=== PATIENT | male | born 1965 | race Caucasian/White ===

== ENCOUNTER 2019-10-23 16:58 | Emergency (ER) | payer BC ==
[~2019-10-23] VITALS: Ht 182.9 cm; Wt 102.5 kg
--- NOTE | 2019-10-23 17:26 | NUR ---
pt to room 15 from lobby
--- NOTE | 2019-10-23 18:13 | NUR ---
PROVIDER AT BEDSIDE
--- NOTE | 2019-10-23 18:36 | NUR ---
URINE SAMPLE SENT TO LAB. US AT BEDSIDE. CALL LIGHT WITHIN REACH.
[2019-10-23 18:40] LABS: BASOPHILS # (AUTO) 0.04 x10^3/uL (0-0.1); BASOPHILS % (AUTO) 1 % (0-1); EOSINOPHILS # (AUTO) 0.13 x10^3/uL (0-0.4); EOSINOPHILS % (AUTO) 2 % (1-7); LYMPHOCYTES # (AUTO) 1.48 x10^3/uL (1-3.4); LYMPHOCYTES % (AUTO) 20 % (22-44); MD NO; MEAN CORPUSCULAR HEMOGLOBIN 30.9 pg (27.5-34.5); MEAN CORPUSCULAR HGB CONC 33.5 g/dL (33.2-36.2); MEAN CORPUSCULAR VOLUME 92.2 fL (81-97); MEAN PLATELET VOLUME 6.7 fL (7.4-10.4); MONOCYTES # (AUTO) 0.59 x10^3/uL (0.2-0.8); MONOCYTES % (AUTO) 8 % (2-9); NEUTROPHILS # (AUTO) 5.15 x10^3/uL (1.8-6.8); NEUTROPHILS % (AUTO) 70 % (42-75); PLATELET COUNT 496 x10^3/uL (130-400); RED BLOOD COUNT 4.48 x10^6/uL (4.38-5.82); RED CELL DISTRIBUTION WIDTH 13.3 % (9.4-14.8)
[2019-10-23 18:49] LABS: MICROSCOPIC NOT IND
--- NOTE | 2019-10-23 18:51 | NUR ---
REPORT FROM HARLAN DESIR. US AT BEDSIDE.
[2019-10-23 18:52] LABS: CULTURE INDICATED? NO
[2019-10-23 18:53] LABS: ALBUMIN 3.1 g/dL (3.4-5.0); ANION GAP 5 mmol/L (5-15); CALCIUM 8.9 mg/dL (8.5-10.1); CHLORIDE 106 mmol/L (98-107)
[2019-10-23 18:57] LABS: ALANINE AMINOTRANSFERASE 278 U/L (12-78); ALKALINE PHOSPHATASE 315 U/L (45-117); BILIRUBIN,TOTAL 1.3 mg/dL (0.2-1.0); CREATININE 1.12 mg/dL (0.7-1.3); TOTAL PROTEIN 7.4 g/dL (6.4-8.2)
--- NOTE | 2019-10-23 19:19 | NUR ---
PT RESTING ON CUONG, VITALS UPDATED, NADN CALL LIGHT IN REACH
--- NOTE | 2019-10-23 19:20 | NUR ---
ALL RESULTS BACK AT THIS TIME, AWAITING FURTHER ORDERS
[2019-10-23 20:08] VITALS: BP 114/67
--- NOTE | 2019-10-23 21:06 | NUR ---
Patient/Caregiver given discharge instructions and they have confirmed that they understand the instructions. Patient ambulatory with steady gait.
== END 2019-10-23 21:07 | disposition home or self-care (01) ==
LOC: ED 20:34
DX: K85.10 Biliary acute pancreatitis without necrosis or infection (principal); K80.21 Calculus of gallbladder without cholecystitis with obstruction; R11.10 Vomiting, unspecified
CPT/HCPCS: 36415; 76700; 80053; 81003; 83690; 85025; 99284

== ENCOUNTER → 2019-10-23 | Outpatient (CLI) | payer BC ==
[~2019-10-23] MED LIST: OMNIPAQUE 350 MG/ML, 100ML BOTTLE ONE
== END | disposition home or self-care (01) ==
LOC: RAD 12:33
PROVIDERS: ATTEND Family Medicine
DX: K82.8 Other specified diseases of gallbladder (principal)
CPT/HCPCS: 74177; Q9967